=== PATIENT | male | born 1940 | race Caucasian/White ===

== ENCOUNTER 2017-11-03 22:30 | Emergency (ER) | payer MEDICARE ==
[2017-11-03] MEDS ORDERED: METF-411 PO (22:51)
[2017-11-03] MEDS ORDERED: blood pressure (22:51)
[2017-11-03] MEDS ORDERED: ALBU8.5H IH (22:51)
[2017-11-03] MEDS ORDERED: [UNRECOGNIZED DRUG - REMARK] (22:51)
[2017-11-03] MEDS ORDERED: antidepressant (22:51)
[2017-11-03] MEDS ORDERED: NS(*) 0.9% 1000 ML BAG 1,000 ML IV ONE (22:58)
[2017-11-03] MEDS ORDERED: ONDANSETRON 4 MG/2 ML VIAL IVP ONE (23:00)
[2017-11-03] MEDS ORDERED: fentaNYL CITR 100 MCG/2 ML AMP IVP ONE (23:00)
--- NOTE | 2017-11-03 23:13 | ER Report ---
History and Physical Time Seen By MD: 23:08 Hx. of Stated Complaint: abd pain and back pain HPI/ROS CHIEF COMPLAINT: Diffuse abdominal pain, weakness HISTORY OF PRESENT ILLNESS: Patient is a 77-year-old male here with complaints of diffuse abdominal pain that started approximately 2 days ago. Patient reports having relief after approximately one day of pain however earlier today the pain returned as located in the right lower quadrant and radiated to the umbilicus. Patient is afebrile, hemodynamically stable. He does have history of diabetes. Patient reports that the pain initially started 2 days ago after eating breakfast and recurred this morning after eating breakfast. Patient is otherwise well-appearing and in mild distress secondary to pain. Denies chest pain, shortness breath, headache, blurred vision, dysuria, hematuria. He does endorse difficulty passing bowel movements and flatus. REVIEW OF SYSTEMS: Constitutional: No fever, + chills. Eyes: No discharge. ENT: No sore throat. Cardiovascular: No chest pain, no palpitations. Respiratory: No cough, no shortness of breath. Gastrointestinal: + diffuse abdominal pain, no vomiting, + nausea. Genitourinary: No hematuria. Musculoskeletal: No back pain. Skin: No rashes. Neurological: No headache. Allergies: Coded Allergies: caffeine (Verified Adverse Reaction, Unknown, 11/03/17) makes my heart race procaine (Verified Adverse Reaction, Unknown, 11/03/17) makes heart race Home Meds Active Scripts Tamsulosin Hcl (FLOMAX) 0.4 Mg Cap.er.24h, 0.4 MG PO QDAY for 14 Days, #14 CAP 0 Refills Prov:JULIANNE MORALES DO 11/04/17 Reported Medications [antidepressant] No Conflict Check 11/03/17 [cholerstrol med] No Conflict Check 11/03/17 [blood pressure] No Conflict Check 11/03/17 Albuterol Sulfate 90 Mcg/Act (PROAIR HFA 90 MCG/ACT) 8.5 Gm Hfa.aer.ad, 1-2 PUFF IH PRN, INHALER 11/03/17 Metformin Hcl (METFORMIN HCL) 500 Mg Tablet, 1 TAB PO TID, TAB 11/03/17 Hx Substance Use Disorder: No Hx Alcohol Use: No Constitutional Vital Sign - Last 24 Hours 11/03/17 11/03/17 11/03/17 11/03/17 22:40 22:41 22:45 23:00 Temp 99.5 Pulse 74 71 70 Resp 13 B/P (MAP) 168/82 168/82 (110) 149/97 (114) 166/89 (114) Pulse Ox 91 91 85 O2 Delivery Room Air Room Air Room Air Room Air 11/03/17 23:45 Pulse 69 Pulse Ox 94 O2 Delivery Room Air Physical Exam General Appearance: The patient is alert, has no immediate need for airway protection and no signs of toxicity. Mild distress secondary to pain Eyes: Pupils equal and round no pallor or injection. ENT, Mouth: Mucous membranes are moist. Respiratory: There are no retractions, lungs are clear to auscultation. Cardiovascular: Regular rate and rhythm. Gastrointestinal: Abdomen is soft and + diffusely tender to palpation, no rebound or guarding, no masses, bowel sounds normal. Neurological: No focal neurological deficits Skin: Warm and dry, no rashes. Musculoskeletal: Neck is supple non tender. Extremities are nontender, nonswollen and have full range of motion. DIFFERENTIAL DIAGNOSIS: After history and physical exam differential diagnosis was considered for abdominal pain including but not limited to appendicitis, cholecystitis, gastritis and urinary tract infection. Medical Decision Making Data Points Result Diagram: 11/03/17 2310 11/03/17 2310 Laboratory Hematology Test 11/03/17 23:10 11/03/17 23:57 Red Blood Count 5.01 M/uL (4.00-5.60) Mean Corpuscular Volume 84.9 fL (80.0-96.0) Mean Corpuscular Hemoglobin 29.8 pg (26.0-33.0) Mean Corpuscular Hemoglobin Concent 35.0 g/dL (32.0-36.0) Red Cell Distribution Width 14.4 % (11.5-14.5) Mean Platelet Volume 8.1 fL (7.2-11.1) Neutrophils (%) (Auto) 88.2 % (39.4-72.5) Lymphocytes (%) (Auto) 6.5 % (17.6-49.6) Monocytes (%) (Auto) 4.8 % (4.1-12.4) Eosinophils (%) (Auto) 0.1 % (0.4-6.7) Basophils (%) (Auto) 0.4 % (0.3-1.4) Nucleated RBC Relative Count (auto) 0.0 /100WBC Neutrophils # (Auto) 11.6 K/uL (2.0-7.4) Lymphocytes # (Auto) 0.9 K/uL (1.3-3.6) Monocytes # (Auto) 0.6 K/uL (0.3-1.0) Eosinophils # (Auto) 0.0 K/uL (0.0-0.5) Basophils # (Auto) 0.1 K/uL (0.0-0.1) Nucleated RBC Absolute Count (auto) 0.00 K/uL Prothrombin Time 13.1 seconds (12.0-14.4) Prothromb Time International Ratio 0.99 Activated Partial Thromboplast Time 32 seconds (23-35) Sodium Level 139 mmol/L (137-145) Potassium Level 4.3 mmol/L (3.5-5.0) Chloride Level 100 mmol/L (98-107) Carbon Dioxide Level 29 mmol/L (22-30) Blood Urea Nitrogen 21 mg/dl (9-21) Creatinine 1.40 mg/dl (0.66-1.25) Glomerular Filtration Rate Calc 49.4 Random Glucose 209 mg/dl (75-110) Lactate 1.8 mmol/L (0.7-2.1) Calcium Level 9.8 mg/dl (8.4-10.2) Total Bilirubin 0.6 mg/dl (0.2-1.3) Aspartate Amino Transf (AST/SGOT) 16 U/L (0-35) Alanine Aminotransferase (ALT/SGPT) 32 U/L (0-56) Alkaline Phosphatase 69 U/L (0-126) Total Protein 7.0 g/dl (6.3-8.2) Albumin 4.3 g/dl (3.5-5.0) Lipase 61 U/L (23-300) Urine Color Yellow Urine Clarity Cloudy Urine pH 6.0 pH (4.8-9.5) Urine Specific [place] 1.014 Urine Protein Negative mg/dL (NEGATIVE) Urine Glucose (UA) 500 mg/dL (NEGATIVE) Urine Ketones Negative mg/dL (NEGATIVE) Urine Blood Negative (NEGATIVE) Urine Nitrite Negative (NEGATIVE) Urine Bilirubin Negative (NEGATIVE) Urine Urobilinogen Negative mg/dL (0.2-1.9) Urine Leukocyte Esterase Negative (NEGATIVE) Urine RBC 1 /HPF (0-2/HPF) Urine WBC 2 /HPF (0-5/HPF) Urine Squamous Epithelial Cells Moderate /LPF (</=FEW) Urine Bacteria Few /HPF (NONE-FEW) Urine Granular Casts Few /LPF (NONE) Urine Mucus Few /HPF (NONE-FEW) Chemistry Test 11/03/17 23:10 11/03/17 23:57 White Blood Count 13.2 k/uL (4.5-11.0) Red Blood Count 5.01 M/uL (4.00-5.60) Hemoglobin 14.9 g/dL (14.0-18.0) Hematocrit 42.5 % (42.0-52.0) Mean Corpuscular Volume 84.9 fL (80.0-96.0) Mean Corpuscular Hemoglobin 29.8 pg (26.0-33.0) Mean Corpuscular Hemoglobin Concent 35.0 g/dL (32.0-36.0) Red Cell Distribution Width 14.4 % (11.5-14.5) Platelet Count 221 K/uL (150-450) Mean Platelet Volume 8.1 fL (7.2-11.1) Neutrophils (%) (Auto) 88.2 % (39.4-72.5) Lymphocytes (%) (Auto) 6.5 % (17.6-49.6) Monocytes (%) (Auto) 4.8 % (4.1-12.4) Eosinophils (%) (Auto) 0.1 % (0.4-6.7) Basophils (%) (Auto) 0.4 % (0.3-1.4) Nucleated RBC Relative Count (auto) 0.0 /100WBC Neutrophils # (Auto) 11.6 K/uL (2.0-7.4) Lymphocytes # (Auto) 0.9 K/uL (1.3-3.6) Monocytes # (Auto) 0.6 K/uL (0.3-1.0) Eosinophils # (Auto) 0.0 K/uL (0.0-0.5) Basophils # (Auto) 0.1 K/uL (0.0-0.1) Nucleated RBC Absolute Count (auto) 0.00 K/uL Prothrombin Time 13.1 seconds (12.0-14.4) Prothromb Time International Ratio 0.99 Activated Partial Thromboplast Time 32 seconds (23-35) Glomerular Filtration Rate Calc 49.4 Lactate 1.8 mmol/L (0.7-2.1) Calcium Level 9.8 mg/dl (8.4-10.2) Total Bilirubin 0.6 mg/dl (0.2-1.3) Aspartate Amino Transf (AST/SGOT) 16 U/L (0-35) Alanine Aminotransferase (ALT/SGPT) 32 U/L (0-56) Alkaline Phosphatase 69 U/L (0-126) Total Protein 7.0 g/dl (6.3-8.2) Albumin 4.3 g/dl (3.5-5.0) Lipase 61 U/L (23-300) Urine Color Yellow Urine Clarity Cloudy Urine pH 6.0 pH (4.8-9.5) Urine Specific [place] 1.014 Urine Protein Negative mg/dL (NEGATIVE) Urine Glucose (UA) 500 mg/dL (NEGATIVE) Urine Ketones Negative mg/dL (NEGATIVE) Urine Blood Negative (NEGATIVE) Urine Nitrite Negative (NEGATIVE) Urine Bilirubin Negative (NEGATIVE) Urine Urobilinogen Negative mg/dL (0.2-1.9) Urine Leukocyte Esterase Negative (NEGATIVE) Urine RBC 1 /HPF (0-2/HPF) Urine WBC 2 /HPF (0-5/HPF) Urine Squamous Epithelial Cells Moderate /LPF (</=FEW) Urine Bacteria Few /HPF (NONE-FEW) Urine Granular Casts Few /LPF (NONE) Urine Mucus Few /HPF (NONE-FEW) Coagulation Test 11/03/17 23:10 Prothrombin Time 13.1 seconds Prothromb Time International Ratio 0.99 Activated Partial Thromboplast Time 32 seconds Urinalysis Test 11/03/17 23:57 Urine Color Yellow Urine Clarity Cloudy Urine pH 6.0 pH (4.8-9.5) Urine Specific [place] 1.014 Urine Protein Negative mg/dL (NEGATIVE) Urine Glucose (UA) 500 mg/dL (NEGATIVE) Urine Ketones Negative mg/dL (NEGATIVE) Urine Blood Negative (NEGATIVE) Urine Nitrite Negative (NEGATIVE) Urine Bilirubin Negative (NEGATIVE) Urine Urobilinogen Negative mg/dL (0.2-1.9) Urine Leukocyte Esterase Negative (NEGATIVE) Urine RBC 1 /HPF (0-2/HPF) Urine WBC 2 /HPF (0-5/HPF) Urine Squamous Epithelial Cells Moderate /LPF (</=FEW) Urine Bacteria Few /HPF (NONE-FEW) Urine Granular Casts Few /LPF (NONE) Urine Mucus Few /HPF (NONE-FEW) EKG/Imaging Imaging COMPUTED TOMOGRAPHY ABDOMEN AND PELVIS WITH INTRAVENOUS CONTRAST DATE OF EXAM: 11/03/2017 10:58 PM INDICATION: Diffuse abdominal pain. COMPARISON: None. TECHNIQUE: Contrast enhanced abdomen and pelvis CT performed during the injection of 75 ml of Isovue 370. Sagittal and coronal reconstructions were performed. One of the following dose optimization techniques was utilized in the performance of this exam: Automated exposure control; adjustment of the mA and/or kV according to the patient's size; or use of an iterative reconstruction technique. Specific details can be referenced in the facility's radiology CT exam operational policy. FINDINGS: Lung bases: 5 mm subpleural nodule in the left lower lobe on image 23 series 2. Mild scarring/atelectasis. Liver and hepatic vasculature: The liver is geographically hypoattenuating. No suspicious lesion or acute abnormality. Gallbladder and bile ducts: Normal. Spleen: Normal. Pancreas: Nonfocal. Adrenals: Normal. Kidneys, ureters and bladder: 3 mm calculus in the distal aspect of the right ureter with associated mild hydronephrosis and hydroureter, and prominent periureteral inflammation. The kidneys appear mildly atrophic. Bilateral parapelvic cysts, as well as cortical cysts on the left, possible small cortical cyst in the superior pole of the right kidney. Bladder is grossly normal. Retroperitoneum and aorta: Nonaneurysmal aorta with mild atherosclerosis. No adenopathy. GI tract, mesentery and peritoneum: Nonacute. Normal appendix. Prostate and seminal vesicles: Prostamegaly. Bones and soft tissues: No acute abnormality or suspicious lesion. Prominent Schmorl's nodes in the lumbar spine. Leftward curvature of the lumbar spine. Small fat-containing umbilical hernia. IMPRESSION: 1. 3 mm calculus in the distal aspect of the right ureter with associated mild hydronephrosis and hydroureter, and prominent periureteral inflammation. 2. Suspected hepatic steatosis. 3. 5 mm left lower lobe pulmonary nodule. Current Fleischner Society recommendations for incidental pulmonary nodules <6mm in size (average of long and short axis): - In a patient with low risk for malignancy (i.e., minimal or absent smoking history, no known malignancy or other risk factors): No routine follow-up. - In a patient at high risk for malignancy (e.g., smoking history and/or other known risk factors): Optional noncontrast CT at 12 months. If unchanged no further follow-up necessary. Nodules less than 6 mm do not require routine follow-up, but certain patients at high risk with suspicious nodule morphology, upper lobe location, or both may warrant 12 month follow-up. Aneesh H, Alonzo Brumfield, Matthew J, et al. Guidelines for management of small pulmonary nodules detected on CT images: from the Fleischner society 2017. ED Course/Re-evaluation ED Course Patient is a 77-year-old male here with complaints of diffuse abdominal pain which has been present intermittently for the past 2 days. Patient is afebrile, hemodynamically stable. Patient reports not being a possible bowel movement since earlier today or flatus. Labs are remarkable for a leukocytosis of 13,000 , renal insufficiency with creatinine 1.4, BUN of 21. Patient received fentanyl , fluids with reduction in pain from 10 out of [address] of the abdomen and pelvis with IV contrast was completed due to concern for infection or bowel obstruction. A 3 mm ureterolith was identified in the distal right ureter with mild hydronephrosis. Urinalysis showed no acute signs of infection. I discussed the findings with the patient and he was surprised to learn that he had kidney dysfunction. He admitted that he drinks very little water throughout the day and has a history of diabetes on metformin and takes meloxicam for the past year. Due to the unclear etiology of the renal insufficiency, the patient received a liter of fluid and was advised to drink plenty of water in case this is prerenal in etiology. I advised the patient to hold off on taking his metformin for 48 hours, to stop taking his meloxicam as this can cause renal damage and insufficiency and to follow-up with his family doctor and customer care voice consultant for further evaluation of renal insufficiency. Patient was given lidocaine intravenously for renal colic relief and was started on Flomax for stone passage and given a prescription for outpatient therapy. Patient voiced understanding of the plan for treatment and further evaluation for renal insufficiency. Patient was hemodynamically stable at time of discharge with significant relief of symptoms. Also, a nodule was identified in the lung that the patient was advised to have follow up for. Decision to Disposition Date: Nov 04, 2017 Decision to Disposition Time: 01:24 Depart Departure Latest Vital Signs Vital Signs Date Time Temp Pulse Resp B/P (MAP) Pulse Ox O2 Delivery O2 Flow Rate FiO2 11/03/17 23:45 69 94 Room Air 11/03/17 23:00 166/89 (114) 11/03/17 22:40 99.5 13 Impression: Primary Impression: Ureterolithiasis Additional Impression: Renal insufficiency Condition: Improved Disposition: HOME OR SELF-CARE New Scripts Tamsulosin Hcl (FLOMAX) 0.4 Mg Cap.er.24h 0.4 MG PO QDAY for 14 Days, #14 CAP 0 Refills Prov: JULIANNE MORALES DO 11/04/17 Patient Instructions: Acute Kidney Injury (GEN), Kidney Stones (ED) Additional Instructions: Please drink plenty of water. Please stop taking meloxicam, naproxen, ibuprofen until you are able to be evaluated for your renal insufficiency or kidney dysfunction. You were diagnosed with renal insufficiency which may be caused by several things including dehydration, high blood pressure, medications such as NSAIDs, diabetes. Please follow-up with your family doctor and/or a kidney doctor for further evaluation of the cause of your renal insufficiency. You may take 1 tablet of Flomax daily until the passage of your kidney stone. Your kidney stone was measured at 3 mm and will likely pass on its own. Please proceed to emergency department if you develop fevers, worsening pain, nausea, vomiting, difficulty urinating. Also, please see below for your CT imaging results. A nodule was identified in your lung that you may need to have follow up imaging for. Please see below recommendations PLEASE DO NOT TAKE YOUR METFORMIN FOR 48 HOURS SINCE YOU RECEIVED IV CONTRAST DYE. CT Abdomen and pelvis IMPRESSION: 1. 3 mm calculus in the distal aspect of the right ureter with associated mild hydronephrosis and hydroureter, and prominent periureteral inflammation. 2. Suspected hepatic steatosis. 3. 5 mm left lower lobe pulmonary nodule. Current Fleischner Society recommendations for incidental pulmonary nodules <6mm in size (average of long and short axis): - In a patient with low risk for malignancy (i.e., minimal or absent smoking history, no known malignancy or other risk factors): No routine follow-up. - In a patient at high risk for malignancy (e.g., smoking history and/or other known risk factors): Optional noncontrast CT at 12 months. If unchanged no further follow-up necessary. Nodules less than 6 mm do not require routine follow-up, but certain patients at high risk with suspicious nodule morphology, upper lobe location, or both may warrant 12 month follow-up. Aneesh H, Alonzo D, Matthew J, et al. Guidelines for management of small pulmonary nodules detected on CT images: from the Fleischner society 2017. Problem Qualifiers JULIANNE MORALES DO Nov 03, 2017 23:13
[2017-11-03 23:26] LABS: PLATELET COUNT, AUTOMATED 221 K/uL (150-450)
[2017-11-03 23:29] LABS: INR 0.99
[2017-11-03] MEDS ORDERED: IOPAMIDOL 76% 100 ML INFUS BTL 100 ML ONE (23:37)
--- NOTE | 2017-11-04 00:55 | RADIOLOGY IMAGING REPORT ---
FACILITY: [facility] - [place] PATIENT NAME: Erasto Dalton : 1940 MR: [id number] V: [id number] EXAM DATE: ORDERING PHYSICIAN: JULIANNE MORALES TECHNOLOGIST: [place] [facility] [place]: Erasto Dalton : 1940 Visit/Account:[id number] Date of Sevice: 11/03/2017 COMPUTED TOMOGRAPHY ABDOMEN AND PELVIS WITH INTRAVENOUS CONTRAST DATE OF EXAM: 11/03/2017 10:58 PM INDICATION: Diffuse abdominal pain. COMPARISON: None. TECHNIQUE: Contrast enhanced abdomen and pelvis CT performed during the injection of 75 ml of Isovue 370. Sagittal and coronal reconstructions were performed. One of the following dose optimization te chniques was utilized in the performance of this exam: Automated exposure control; adjustment of the mA and/or kV according to the patient's size; or use of an iterative reconstruction technique. Spec [facility] details can be referenced in the facility's radiology CT exam operational policy. FINDINGS: Lung bases: 5 mm subpleural nodule in the left lower lobe on image 23 series 2. Mild scarring/atelec tasis. Liver and hepatic vasculature: The liver is geographically hypoattenuating. No suspicious lesion or acute abnormality. Gallbladder and bile ducts: Normal. Spleen: Normal. Pancreas: Nonfocal. Adrenals: Normal. Kidneys, ureters and bladder: 3 mm calculus in the distal aspect of the right ureter with associated mild hydronephrosis and hydroureter, and prominent periureteral inflammation. The kidneys appear mi ldly atrophic. Bilateral parapelvic cysts, as well as cortical cysts on the left, possible small cor tical cyst in the superior pole of the right kidney. Bladder is grossly normal. Retroperitoneum and aorta: Nonaneurysmal aorta with mild atherosclerosis. No adenopathy. GI tract, mesentery and peritoneum: Nonacute. Normal appendix. Prostate and seminal vesicles: Prostamegaly. Bones and soft tissues: No acute abnormality or suspicious lesion. Prominent Schmorl's nodes in the lumbar spine. Leftward curvature of the lumbar spine. Small fat-containing umbilical hernia. IMPRESSION: 1. 3 mm calculus in the distal aspect of the right ureter with associated mild hydronephrosis and hy droureter, and prominent periureteral inflammation. 2. Suspected hepatic steatosis. 3. 5 mm left lower lobe pulmonary nodule. Current Fleischner Society recommendations for incidental pulmonary nodules <6mm in size (average of long and short axis): - In a patient with low risk for malignancy (i.e., minimal or absent smoking history, no known malig víctor or other risk factors): No routine follow-up. - In a patient at high risk for malignancy (e.g., smoking history and/or other known risk factors): Optional noncontrast CT at 12 months. If unchanged no further follow-up necessary. Nodules less than 6 mm do not require routine follow-up, but certain patients at high risk with suspi cious nodule morphology, upper lobe location, or both may warrant 12 month follow-up. Aneesh H, Alonzo D, Matthew J, et al. Guidelines for management of small pulmonary nodules detected on CT images: from the Fleischner society 2017. Report Dictated By: Hi Sheth MD at 11/04/2017 12:41 AM Report E-Signed By: Hi Sheth MD at 11/04/2017 12:51 AM WSN:[id number]
[2017-11-04] MEDS ORDERED: LIDOCAINE 2% IV 100 MG/5ML SYR IVP ONE (01:10)
[2017-11-04] MEDS ORDERED: TAMSULOSIN HCL 0.4 MG CAP PO ONE (01:10)
[2017-11-04] MEDS ORDERED: TAMS0.4C25 PO (01:18)
[2017-11-04] MEDS ORDERED: NS(*) 0.9% 50 ML BAG 50 ML ONE (01:19)
[2017-11-04 01:30] VITALS: BP 138/118
--- NOTE | 2017-11-04 02:52 | EKG ---
FACILITY: [facility] - [place] PATIENT NAME: SOWMYA LARIOS : [id number] MR: [id number] V: [id number] EXAM DATE: ORDERING PHYSICIAN: JULIANNE MORALES TECHNOLOGIST: JACOB Test Reason : ABD PAIN Blood Pressure : / mmHG Vent. Rate : 069 BPM Atrial Rate : 069 BPM P-R Int : 198 ms QRS Dur : 116 ms QT Int : 390 ms P-R-T Axes : 058 -55 -08 degrees QTc Int : 417 ms Normal sinus rhythm Pulmonary disease pattern Incomplete right bundle branch block Left anterior fascicular block T wave abnormality, consider lateral ischemia Abnormal ECG No previous ECGs available Confirmed by Chadd Tavares ([id number]) on 11/04/2017 7:48:15 AM Referred By: Confirmed By:Chadd Abdul
== END 2017-11-04 01:52 | disposition home or self-care (01) ==
LOC: ER 22:38
DX: N20.1 Calculus of ureter (principal); N28.9 Disorder of kidney and ureter, unspecified; E11.9 Type 2 diabetes mellitus without complications; Z79.84 Long term (current) use of oral hypoglycemic drugs
CPT/HCPCS: 74177; 81001; 83605; 83690; 85025; 85610; 85730; 93005; 96361; 96374; 96375; 99284; A9270; J2001; J2405; J3010; J7030; J7050; Q9967; 82040; 82247; 82310; 82374; 82435; 82565; 82947; 84075; 84132; 84155; 84295; 84450; 84460; 84520